=== PATIENT | male | born 1960 | race Caucasian/White ===

== ENCOUNTER 2019-03-04 12:04 | Emergency (ER) | payer SELFPAY ==
[~2019-03-04] VITALS: Wt 72.6 kg
[~2019-03-04 12:04] MED LIST: NORCO 5-325 TA1 EACH PO
[2019-03-04 12:05] VITALS: BP 117/75
[2019-03-04 12:29] LABS: BASO # 0.1 10*3/uL (0.0-0.1); BASO % 0.5 % (0.0-1.0); EOS # 0.1 10*3/uL (0.0-0.4); EOS % 1.1 % (1.0-4.0); HEMATOCRIT 48.8 % (42.0-52.0); HEMOGLOBIN 16.6 g/dl (14.0-18.0); LYMPH # 1.9 10*3/uL (1.3-4.4); LYMPH % 19.1 % (27.0-41.0); MEAN CELL VOLUME 95.1 fl (80.0-94.0); MEAN CORPUSCULAR HGB 32.4 pg (27.0-31.0); MEAN PLATELET VOLUME 8.8 fl (9.6-12.3); MONO # 1.2 10*3/uL (0.1-1.0); MONO % 12.3 % (3.0-9.0); NEUT # 6.7 10*3/uL (2.3-7.9); NEUT % 66.8 % (47.0-73.0); PLATELET COUNT AUTOMATED 346 10*3/uL (130-400); RED BLOOD COUNT 5.13 10*6/uL (4.50-5.90); WHITE BLOOD COUNT 10.1 10*3/uL (4.8-10.8)
[2019-03-04 12:45] LABS: ALBUMIN 3.9 gm/dl (3.1-4.5); ALKALINE PHOSPHATASE 86 U/L (45-117); BUN 10 mg/dl (7-24); CHLORIDE 101 mmol/L (98-107); POTASSIUM 4.8 mmol/L (3.5-5.1); SGOT/AST 17 IU/L (3-35); SGPT/ALT 23 U/L (12-78); SODIUM 137 mmol/L (136-145); TOTAL PROTEIN 7.7 gm/dL (6.4-8.2)
[2019-03-04] MEDS ORDERED: MEDROL DOSEPAK4 MG PO (13:34)
[2019-03-05] MEDS ORDERED: CYCLOBENZAPRINE10 MG PO (11:24)
[2019-03-05] MEDS ORDERED: TYLENOL325 M1 PO (11:24)
== END 2019-03-04 13:49 | disposition home or self-care (01) ==
LOC: ED 12:04
PROVIDERS: Emergency Medicine
DX: M51.16 Intervertebral disc disorders with radiculopathy, lumbar region (principal); M47.26 Other spondylosis with radiculopathy, lumbar region; F17.200 Nicotine dependence, unspecified, uncomplicated; Z88.0 Allergy status to penicillin

== ENCOUNTER 2019-05-06 12:26 | Emergency (ER) | payer SELFPAY ==
[~2019-05-06] VITALS: Ht 175.2 cm; Wt 61.2 kg
[~2019-05-06 12:26] MED LIST changes: +CYCLOBENZAPRINE10 MG PO; +MEDROL DOSEPAK4 MG PO; +TYLENOL325 M1 PO
[2019-05-06 12:27] VITALS: BP 136/79
[2019-05-06] MEDS ORDERED: VISTARIL25 MG PO (12:41)
[2019-05-06] MEDS ORDERED: PREDNISONE50 MG PO (12:41)
[2019-05-06] MEDS ORDERED: Kenalog 0.5% Cr15 GM T (12:41)
== END 2019-05-06 12:40 | disposition home or self-care (01) ==
LOC: ED 12:26
DX: L40.9 Psoriasis, unspecified (principal); J44.9 Chronic obstructive pulmonary disease, unspecified; Z88.0 Allergy status to penicillin; Z79.899 Other long term (current) drug therapy

== ENCOUNTER 2020-05-04 06:10 | Emergency (ER) | payer SELFPAY ==
[~2020-05-04] VITALS: Ht 175.2 cm; Wt 59.0 kg
[~2020-05-04 06:10] MED LIST changes: +Kenalog 0.5% Cr15 GM T; +PREDNISONE50 MG PO; +VISTARIL25 MG PO
[2020-05-04 06:21] VITALS: BP 155/90
[2020-05-04 06:50] LABS: BASO % 0.4 % (0.0-1.0); EOS # 0.2 10*3/uL (0.0-0.4); EOS % 1.8 % (1.0-4.0); HEMATOCRIT 48.1 % (42.0-52.0); LYMPH # 1.1 10*3/uL (1.3-4.4); MEAN CELL VOLUME 92.9 fl (80.0-94.0); MEAN CORPUSCULAR HGB 31.7 pg (27.0-31.0); MEAN CORPUSCULAR HGB CONC 34.1 g/dl (33.0-37.0); MEAN PLATELET VOLUME 9.1 fl (9.6-12.3); MONO # 0.7 10*3/uL (0.1-1.0); MONO % 8.6 % (3.0-9.0); NEUT # 6.5 10*3/uL (2.3-7.9); PLATELET COUNT AUTOMATED 343 10*3/uL (130-400); RED BLOOD COUNT 5.18 10*6/uL (4.50-5.90); WHITE BLOOD COUNT 8.5 10*3/uL (4.8-10.8)
[2020-05-04 07:04] LABS: ALBUMIN 3.8 gm/dl (3.1-4.5); ALKALINE PHOSPHATASE 83 U/L (45-117); BUN 8 mg/dl (7-24); CHLORIDE 103 mmol/L (98-107); CREATININE 0.96 mg/dL (0.70-1.30); LIPASE 43 U/L (73-393); POTASSIUM 4.6 mmol/L (3.5-5.1); SGOT/AST 22 IU/L (3-35); SGPT/ALT 23 U/L (12-78); SODIUM 138 mmol/L (136-145); TOTAL PROTEIN 7.6 gm/dL (6.4-8.2)
[2020-05-04 08:19] LABS: BILIRUBIN Negative (Negative); BLOOD 2+ (Negative); CLARITY Clear (Clear); COLOR Yellow (Yellow); GLUCOSE Negative (Negative); KETONE 1+ (Negative); LEUKO ESTERASE Trace (Negative); NITRITE Negative (Negative); PH 5.5 (4.5-8.0); SPECIFIC GRAVITY 1.015 (1.001-1.030); UROBILINOGEN 0.2 E.U./dl (0.0-1.0)
[2020-05-04 08:30] LABS: BACTERIA 1+; MUCOUS 1+; RBC 41-50 rbc/hpf (0-2)
[2020-05-04] MEDS ORDERED: CIPRO500 MG PO (09:25)
== END 2020-05-04 09:36 | disposition home or self-care (01) ==
LOC: ED 06:10
PROVIDERS: Emergency Medicine
DX: N39.0 Urinary tract infection, site not specified (principal); Z88.0 Allergy status to penicillin

== ENCOUNTER → 2020-05-29 | Outpatient (CLI) | payer SELFPAY ==
[~2020-05-29] MED LIST changes: +CIPRO500 MG PO
== END | disposition home or self-care (01) ==
LOC: COVID19 08:51
PROVIDERS: ATTEND Student in an Organized Health Care Education/Training Program
DX: Z20.828 Contact with and (suspected) exposure to other viral communicable diseases (principal)